=== PATIENT | male | born 1990 | race Caucasian/White ===

== ENCOUNTER 2019-02-18 00:16 | Emergency (ER) | payer OTHER ==
[~2019-02-18] VITALS: Ht 172.7 cm; Wt 65.8 kg
[~2019-02-18 00:16] MED LIST: NOHOMEMEDICATIONS; POLYMYXIN B/TMP10 ML OP
[2019-02-18 00:18] VITALS: BP 148/87
[2019-02-18] MEDS ORDERED: ULTRAM 50MG TAB50 MG PO (02:02)
== END 2019-02-18 02:50 | disposition home or self-care (01) ==
LOC: ER 00:16
DX: K08.89 Other specified disorders of teeth and supporting structures (principal)

== ENCOUNTER 2020-05-16 21:30 | Emergency (ER) | payer OTHER ==
[~2020-05-16] VITALS: Ht 175.3 cm; Wt 67.1 kg
[~2020-05-16 21:30] MED LIST changes: +ULTRAM 50MG TAB50 MG PO
[2020-05-16 21:33] VITALS: BP 151/79
== END 2020-05-16 21:59 | disposition home or self-care (01) ==
LOC: ER 21:30
DX: K08.89 Other specified disorders of teeth and supporting structures (principal); Z79.899 Other long term (current) drug therapy